=== PATIENT | female | born 1965 | race Caucasian/White ===

== ENCOUNTER → 2019-01-18 | Outpatient (CLI) | payer BC ==
--- NOTE | 2019-01-18 14:46 | MRI ---
EXAM DESCRIPTION: Cervical Spine CLINICAL HISTORY: M54.12 RADICULOPATHY COMPARISON: None Available. TECHNIQUE: MRI of the cervical spine is performed according to our usual protocol. FINDINGS: Sagittal T2 images reveal decreased signal intensity within the intervertebral discs. Normal T2 appearance of the cervical cord. Posterior discal abnormality is most prominent at C6-7. Sagittal T1 images show benign marrow signal characteristics. Normal T1 appearance of the cervical and upper thoracic spinal cord. Normal alignment of the vertebral bodies and facets. Sagittal STIR images are negative for high signal intensity marrow edema within the vertebral bodies or posterior elements. No paraspinous fluid collection or cystic lesion. Axial images were obtained to evaluate the disc levels. C2-3: Normal posterior disc margin with no spinal stenosis or neural foraminal narrowing. Mild facet hypertrophic changes on the left. Normal appearance of the cord at this level. C3-4: Normal posterior disc margin with no spinal stenosis or neural foraminal narrowing. Mild facet hypertrophic changes left more than right. Normal appearance of the cord at this level. C4-5: Mild diffuse posterior annular bulge without significant spinal stenosis. There is mild midline and right paracentral accentuation. Partial effacement of CSF anterior to the cord. No neural foraminal narrowing. Facets appear normal. Normal appearance of the cord at this level. C5-6: Mild posterior annular bulge without significant spinal stenosis or neural foraminal narrowing. Facets appear normal. Normal appearance of the cord at this level. C6-7: Posterior leftward disc herniation measures 4.5 mm in AP dimension and approximately 7 mm in mediolateral width encroaching upon the entry zone to the left neural foramen. More peripherally, there is moderate left neural foraminal narrowing related to uncinate hypertrophy. Mild neural foraminal narrowing on the right. There is narrowing of the AP diameter of the spinal canal to 7 mm with mild contouring of the left anterior aspect of the cord. C7-T1: Normal posterior disc margin with no spinal stenosis or neural foraminal narrowing. Small perineural cyst in the left neural foramen measures 7 mm. Facets appear normal. Normal appearance of the cord at this level. IMPRESSION: C6-7 posterior leftward disc herniation 4.5 mm encroaches upon the entry zone to the left neural foramen with mild ventral cord contouring. Electronically signed by: Drew Delaney MD 01/18/2019 2:44 PM CDT
== END ==
LOC: MRI 01-14 11:44
PROVIDERS: ATTEND Nurse Practitioner Family
DX: M50.123 Cervical disc disorder at C6-C7 level with radiculopathy (principal)